=== PATIENT | female | born 1995 | race Caucasian/White ===

== ENCOUNTER 2016-06-09 23:35 | Emergency (ER) | payer OTHER, BC ==
[2016-06-10] MEDS ORDERED: Ibuprofen 200 MG Tab ONE (00:49)
[2016-06-10 03:06] VITALS: BP 108/64
--- NOTE | 2016-06-14 13:10 | ER ---
Date of Service: 06/09/2016 SUBJECTIVE: Yolanda presents to the emergency room with complaints of pain to her left hand in the area of her fifth metacarpophalangeal joint. The patient states that she was attempting to open a window on a [place]vee which weighs approximately 50 pounds, when it let loose and struck her in the hand. She states that she is experiencing discomfort and swelling in the area of the fifth digit of the right hand. She denies any numbness or tingling distal to the area of injury and denies any injury other than was previously mentioned. PAST MEDICAL HISTORY: Denies. MEDICATIONS: None. ALLERGIES: NKDA. REVIEW OF SYSTEMS: Denies any numbness or tingling distal to the area of injury. Please see history of present illness. PHYSICAL EXAMINATION: General: This is a 20-year-old female, who is in no acute distress. Vital Signs: Blood pressure is 108/64, temperature is 36.2, respiratory rate 16, and O2 saturations 98%. Skin: Warm, pink, and dry. Musculoskeletal: She does have some edema and ecchymosis noted to the metacarpophalangeal joint of the fifth digit of the right hand. No obvious step- offs, deformity, or crepitus noted. Neurovascular circulation, sensation, motor function all within normal limits in distal portion of the extremity. RADIOGRAPHIC DATA: Radiographs of the patient's right hand were obtained. There was no evidence of any obvious fracture or dislocation. ASSESSMENT: Contusion to the dorsal aspect of the right hand. PLAN: The patient will be discharged. Tylenol and ibuprofen for discomfort. Ice the area for 10 to 15 minutes every 1 to 2 hours. Follow up in the clinic in next 5 to 7 days if not continually improving. All questions were answered. MWK: 06/13/2016 19:41:54 MODL: 06/14/2016 00:33:50 /[id number]
== END 2016-06-10 00:52 | disposition home or self-care (01) ==
LOC: VM.ED 23:35
DX: S60.221A Contusion of right hand, initial encounter (principal); W22.8XXA Striking against or struck by other objects, initial encounter
CPT/HCPCS: 73130-RT; 99283